=== PATIENT | female | born 1980 | race African-American/Black ===

== ENCOUNTER → 2020-06-17 | Outpatient (CLI) | payer SELFPAY ==
[~2020-06-17] MED LIST: ACET-2708 PO; DOCU-286 PO; FERR-71 PO
== END | disposition home or self-care (01) ==
LOC: LAB 09:58
PROVIDERS: ATTEND Obstetrics & Gynecology Obstetrics
DX: Z01.812 Encounter for preprocedural laboratory examination (principal); Z20.822 Contact with and (suspected) exposure to COVID-19
CPT/HCPCS: 87426

== ENCOUNTER 2020-06-19 05:10 | Inpatient (IN) | payer SELFPAY ==
[~2020-06-19] VITALS: Ht 154.9 cm; Wt 61.2 kg
[2020-06-19] MEDS ORDERED: LACTATED RINGERS 1,000 ML IV SCH (06:30)
[2020-06-19 06:39] LABS: CLARITY URINE CLEAR (CLEAR); COLOR URINE YELLOW (YELLOW); KETONES URINE NEGATIVE (NEGATIVE); LEUKOCYTE ESTERASE URINE TRACE (NEGATIVE); NITRITE URINE NEGATIVE (NEGATIVE); OCCULT BLOOD URINE NEGATIVE (NEGATIVE); PH URINE 5.5 (4.5-8.0); PROTEIN URINE NEGATIVE (NEGATIVE); SPECIFIC GRAVITY URINE 1.011 (1.005-1.030); UROBILINOGEN URINE 0.2 E.U./dL (0.2-1.0)
[2020-06-19 06:41] LABS: BASOPHILS % 1.1 % (0.0-2.0); EOSINOPHILS % 1.5 % (0.0-5.0); HEMATOCRIT. 39.1 % (36.0-48.0); HEMOGLOBIN. 12.4 g/dL (12.0-16.0); MEAN CORPUSCULAR HEMOGLOBIN 24.1 pg (28.0-32.0); MEAN PLATELET VOLUME 9.4 fl (7.4-10.4); MONOCYTES % 7.1 % (2.0-8.0); NEUTROPHILS % 66.3 % (40.0-76.0); PLATELET 180 x1000/uL (130-400); RED BLOOD CELL COUNT 5.14 mill/uL (4.2-5.4); RED CELL DISTRIBUTION WIDTH 15.9 % (11.6-14.6)
[2020-06-19 06:44] LABS: UCG SCREEN NEGATIVE
[2020-06-19] MEDS ORDERED: METHYLENE BLUE 50 MG/10 ML AMP IV ONE (07:09)
[2020-06-19] MEDS ORDERED: VASOPRESSIN 20 UNIT/ML 1ML ONE (07:10)
[2020-06-19] MEDS ORDERED: FENTANYL CITRATE/PF 50MCG/ML 2ML VIAL ONE ×2 (07:20→08:53)
[2020-06-19] MEDS ORDERED: NEOSTIGMINE METHYLSULFATE 1MG/ML 10 ML VIAL ONE (07:20)
[2020-06-19] MEDS ORDERED: GLYCOPYRROLATE 0.2 MG/ML 2ML VIAL ONE (07:20)
[2020-06-19] MEDS ORDERED: PROPOFOL 200MG/20ML VIAL IV ONE (07:20)
[2020-06-19] MEDS ORDERED: MIDAZOLAM HCL 2 MG/2 ML VIAL ONE (07:20)
[2020-06-19] MEDS ORDERED: ROCURONIUM BROMIDE 10MG/ML VIAL 5ML IV ONE ×2 (07:20→08:53)
[2020-06-19] MEDS ORDERED: LIDOCAINE HCL/PF 1% 10 MG/ML 5ML VIAL ONE (07:22)
[2020-06-19] MEDS ORDERED: ONDANSETRON HCL 4MG/2ML INJ ONE (07:22)
[2020-06-19] MEDS ORDERED: CEFAZOLIN SODIUM 1000MG/VIAL ONE (07:22)
[2020-06-19] MEDS ORDERED: METOCLOPRAMIDE HCL 10MG/2ML VIAL ONE (07:22)
[2020-06-19] MEDS ORDERED: SUCCINYLCHOLINE CHLORIDE 200MG/10ML IV ONE (07:22)
[2020-06-19] MEDS ORDERED: LIDOCAINE HCL 2% JELLY 5ML ONE (07:22)
[2020-06-19] MEDS ORDERED: FERR-71 PO (09:13)
[2020-06-19] MEDS ORDERED: ACET-2708 PO (09:13)
[2020-06-19] MEDS ORDERED: DOCU-286 PO (09:13)
[2020-06-19] MEDS ORDERED: MORPHINE SULFATE 2 MG/ML CPJ (NOT FOR IM USE) IV PRN ×2 (10:45)
[2020-06-19] MEDS ORDERED: HYDROMORPHONE HCL/PF 2MG/ML CPJ IV PRN (10:45)
[2020-06-19] MEDS ORDERED: ONDANSETRON HCL 4MG/2ML INJ IV PRN ×2 (10:45)
[2020-06-19] MEDS ORDERED: MEPERIDINE HCL/PF 25MG/ML CPJ IV PRN ×2 (10:45)
[2020-06-19] MEDS ORDERED: SODIUM CHLORIDE 0.9% 1,000 ML IV ONE ×2 (10:45)
[2020-06-19] MEDS: HYDROMORPHONE HCL/PF 2MG/ML CPJ IV PRN ×5 (11:37→21:07)
[2020-06-19] MEDS ORDERED: TRAMADOL 50MG TABLET PO PRN ×2 (13:15)
[2020-06-19 14:54] VITALS: BP 102/62
[2020-06-19] MEDS ORDERED: INFLUENZA VACCINE 05/PF 0.5 ML VIAL IM ONE (15:45)
[2020-06-19] MEDS: LACTATED RINGERS 1,000 ML IV SCH ×2 (15:52→21:09)
[2020-06-19 16:00] VITALS: BP 105/66
[2020-06-19] MEDS: DOCUSATE SODIUM 100MG CAPSULE PO SCH (17:00)
[2020-06-19 20:00] VITALS: BP 101/71
[2020-06-20] VITALS: BP 107/72
[2020-06-20] MEDS: HYDROMORPHONE HCL/PF 2MG/ML CPJ IV PRN ×3 (01:42→11:48)
[2020-06-20 04:00] VITALS: BP 113/72
[2020-06-20] MEDS: LACTATED RINGERS 1,000 ML IV SCH (05:18)
[2020-06-20 08:00] VITALS: BP 131/76
[2020-06-20] MEDS: DOCUSATE SODIUM 100MG CAPSULE PO SCH (08:18)
[2020-06-20 11:58] VITALS: BP 119/68
== END 2020-06-20 13:25 | disposition home or self-care (01) | DRG 519 ==
LOC: OR 05:10 → 6EST 05:11
PROVIDERS: ADMIT Obstetrics & Gynecology Obstetrics; ATTEND Obstetrics & Gynecology Obstetrics
PROC: 0U7C7ZZ Dilation of Cervix, Via Natural or Artificial Opening (ICD-10-PCS; principal; 2020-06-19)
PROC: 0U598ZZ Destruction of Uterus, Via Natural or Artificial Opening Endoscopic (ICD-10-PCS; 2020-06-19)
PROC: 0DNW4ZZ Release Peritoneum, Percutaneous Endoscopic Approach (ICD-10-PCS; 2020-06-19)
DX: D25.9 Leiomyoma of uterus, unspecified (principal); N80.0 Endometriosis of uterus; K66.0 Peritoneal adhesions (postprocedural) (postinfection); Z82.49 Family history of ischemic heart disease and other diseases of the circulatory system
CPT/HCPCS: 36415; 81003; 81025; 85025; 86850; 86900; 88305; J0330; J0690; J1170; J2175; J2250; J2405; J2704; J2710; J2765; J3010; J3490; J7120; Q9968